=== PATIENT | female | born 1995 | race Caucasian/White ===

== ENCOUNTER 2017-08-25 08:00 | Inpatient (IN) ==
[2017-08-25] MEDS ORDERED: *HR* Nalbuphine 20 MG/ML AMPUL IVP PRN (17:54)
[2017-08-25] MEDS ORDERED: Ondansetron 4 MG/2 ML VIAL IVP PRN (17:54)
[2017-08-25] MEDS ORDERED: Naloxone 0.4 MG/ML INJ IVP PRN (17:54)
[2017-08-25] MEDS ORDERED: Famotidine 20 MG/2 ML VIAL IVP PRN (17:54)
[2017-08-25] MEDS ORDERED: Metoclopramide 10 MG/2 ML VIAL IVP PRN (17:54)
[2017-08-25] MEDS ORDERED: Lidocaine 1% 20 ML MDV INFILT PRN (17:54)
[2017-08-25] MEDS ORDERED: Ringers Solution, Lactated 1,000 ML IVC SCH (18:00)
[2017-08-25] MEDS ORDERED: miSOPROStol 25 MCG TABLET PO PRN (18:00)
[2017-08-25 18:30] LABS: Basophils % 0.2 %
[2017-08-25 18:32] LABS: Eosinophils # 0.1 K/mcL (0.0-0.6); Eosinophils % 1.5 %; Hematocrit 31.7 % (35.3-44.9); Hemoglobin 9.6 g/dL (11.5-15.4); Immature Platelets 20.7 % (1.1-6.1); Lymphocytes # 1.6 K/mcL (0.6-4.6); Lymphocytes % 16.2 %; Mean Corpuscular HGB Conc 30.3 g/dL (31.6-35.5); Mean Corpuscular Hemoglobin 22.4 pg (28.0-33.3); Mean Corpuscular Volume 74.1 fL (83.0-100.0); Monocytes # 0.9 K/mcL (0.0-1.3); Monocytes % 9.3 %; Neutrophils # 6.9 K/mcL (1.6-8.9); Nucleated Red Blood Cells 0.4 /100 WBC (0); Platelet Count 191 K/mcL (140-400); Red Blood Count 4.28 M/mcL (3.82-4.97); Red Cell Distribution Width 15.7 % (11.5-14.5); Segmented Neutrophils % 71.8 %
[2017-08-25 18:39] LABS: Amphetamine Screen,Urine Negative ng/mL (Cutoff=1000); Barbiturate Screen,Urine Negative ng/mL (Cutoff=200); Benzodiazepines Screen,Urine Negative ng/mL (Cutoff=200); Cannabinoid Screen,Urine Negative ng/mL (Cutoff = 50); Cocaine Screen,Urine Negative ng/mL (Cutoff= 300); Opiate Screen,Urine Negative ng/mL (Cutoff=300); Phencyclidine Screen,Urine Negative ng/mL (Cutoff=25)
--- NOTE | 2017-08-25 19:31 | OB/GYN History & Physical ---
Date of Encounter: 08/25/17 Time of Encounter: 19:30 Assessment and Plan (1) with 39 completed weeks gestation Current visit: Yes Status: Acute Admit for induction of labor VSS Cytotec for IOL Epidural when requested Anticipate (2) NST (non-stress test) reactive on surveillance Current visit: Yes Status: Acute Baseline 150 bpm moderate variability +accels/ - decels heart tracing reassuring Anticipate (3) Large for gestational age fetus affecting mother, antepartum, third trimester, single gestation Current visit: Yes Status: Acute History of Present Illness Chief complaint: labor evaluation HPI: Ms. Johnson is a 22 year old female at 39 weeks and 2 days who presents to labor and delivery for scheduled induction of labor. She receives appropriate antepartum care from Dr. Rodriguez, last outpatient visit on 08/19/17. She reports good movement with contractions every 5-10 minutes. Denies vaginal bleeding or leakage of fluid. Patient denies fever, chills, nausea, vomiting, headaches, vision disturbances, chest pain, shortness of breath, epigastric pain , dysuria. Patient's complicated by stated large for gestational age, FOB has daughter with heart defects, Varicella IgG negative. Blood Type: O+ GBS: negative Varicella IgG: negative Hepatitis B Antigen: NR HIV Antibody Ag: NR T Pallidum: negative Rubella IgG: positive last ultrasound 08/04/17 Indication: LGA . Findings: The fetus is in, VTX postition., The placenta is, . +FHB., The HILARY __3_/_26__/_18__, _36__W_2__D, UTS _38__W_4__D, The EFW is _3375_ _g or _7__lb__7_oz,-->90%-- The EDGARDO is __14__cm. head circ. >97%. Past Med Surg Social Fam HX - Past Medical History Medical history: no medical history, asthma Psychiatric history: no psych history - Past Surgical History Surgical History: other - Social History Smoking Status: Never smoker Smokeless Tobacco Status: No Alcohol use: none Drug use: none - Family History Father Living Status: Still Living Hx Family Cardiac Disorders: Yes (hypertension) Obstetrical History - Pregnancies : 1 Para: 0 Medications and Allergies Folic Acid 1 / PO DAILY 06/13/17 [History] Formula Tablet 1 tab PO DAILY 06/13/17 [History] 3 Allergy/AdvReac Type Severity Reaction Status Date / Time No Known Allergies Allergy Verified 06/13/17 12:33 Review of System OB All systems PM: reviewed and no additional remarkable complaints except as stated - Constitutional Constitutional ROS IM: as per HPI - Cardiovascular Cardiovascular: as per HPI - Respiratory Respiratory: as per HPI - Gastrointestinal Gastrointestinal: as per HPI - Genitourinary Genitourinary: as per HPI Exam - Constitutional Constitutional: well developed, well nourished, no acute distress, average body habitus - HEENT HEENT: Normocephaly, Mucus Membranes Moist - Neck Neck exam: full ROM - Lungs Respiratory exam: CTAB - Cardiovascular Cardiovascular exam: RRR, +S1, +S2 - Abdomen Abdomen: Present: bowel sounds normal, gravid, non tender - Extremities Extremities exam: full ROM, radial pulses palpable and symmetrical Deep Tendon Reflex Grade: 2+ Normal - Uterus Uterus exam: Present: normal size, normal contour Results Result Diagrams: 08/25/17 17:56 Abnormal lab results Hgb 9.6 g/dL (11.5-15.4) L 08/25/17 17:56 Hct 31.7 % (35.3-44.9) L 08/25/17 17:56 MCV 74.1 fL (83.0-100.0) L 08/25/17 17:56 MCH 22.4 pg (28.0-33.3) L 08/25/17 17:56 MCHC 30.3 g/dL (31.6-35.5) L 08/25/17 17:56 RDW 15.7 % (11.5-14.5) H 08/25/17 17:56 Nucleated RBCs/100 WBC 0.4 /100 WBC (0) H 08/25/17 17:56 Immature Plt Fraction 20.7 % (1.1-6.1) H 08/25/17 17:56 All other labs normal. - VTE Reasons for not Prescribing Prophylaxis: Treatment not Indicated - Low risk for VTE - Attending Attestation I examined this patient and my medical decision-making was reviewed with the Resident Physician. I agree with the documented findings, disposition and treatment plan as described. Susu Rodriguez DO
--- NOTE | 2017-08-25 20:19 | OB Labor Progress Note ---
Date of Encounter: 08/25/17 Time of Encounter: 20:17 Labor Progress Note - Subjective Subjective: Patient comfortable and denies complaints. She states she began adan at 2 am. She has had infrequent contractions off and on all day. - Cervix Cervix: 3/80/-3 vertex - Heart Tones Heart Tones: category 1 with baseline FHT's 140's - [place]: q 2.5-3 minute contractions s/p cytotec PO at 1830 - Interventions Interventions: Villanueva inserted above cervix and inflated with 60 ml sterile saline without difficulty. Patient tolerated the procedure well and questions answered. - Plan Plan: EFM with anticipation of vaginal delivery
--- NOTE | 2017-08-25 21:49 | OB Labor Progress Note ---
Date of Encounter: 08/25/17 Time of Encounter: 21:47 Labor Progress Note - Subjective Subjective: Pt reports mild to moderate discomfort with contractions. - Cervix Cervix: 6-7/90/0 - Heart Tones Heart Tones: Category I - [place]: irregular - Interventions Interventions: AROM for moderate amount clear fluid. IUPC and FSE placed. - Plan Plan: Continue to monitor. Epidural when requested. Anticipate .
[2017-08-25] MEDS ORDERED: Bupivacaine-MPF 0.25% 10 ML VIAL EP ONE (22:03)
[2017-08-25] MEDS ORDERED: *HR* FentaNYL (PF) 100 MCG/2 ML VIAL EP ONE (22:03)
[2017-08-25] MEDS ORDERED: Epidural Premix (fent/bupiv) 110 ML EP SCH (22:15)
--- NOTE | 2017-08-25 22:21 | Anesthesia Evaluation PreOp ---
Date of Encounter: 08/25/17 Time of Encounter: 22:10 - Past History Planned Operation: labor epidural Cardiac History: Denies any Significant Hx Pulmonary History: Asthma (mild, does not use inhaler, well-controlled.) WAITER/WAITRESS FORMAL History: Other (history of petitmal seizures, on no meds now, last seizure at beginning of .) Other Medical History: Denies Any Significant HX Anesthesia History: No Prior Anesthetic Complications, Past Anesthesia (left elbow pinning. No FHAP.) Alcohol Use: none Drug use: none Medications and Allergies Folic Acid 1 / PO DAILY 06/13/17 [History] Formula Tablet 1 tab PO DAILY 06/13/17 [History] 3 Allergy/AdvReac Type Severity Reaction Status Date / Time No Known Allergies Allergy Verified 06/13/17 12:33 - Meds/Allergy Pre-op Review Medications Reviewed: Yes Allergies Reviewed: Yes Beta Blockers on Current Med List: No Anesthesia Results - Labs 08/25/17 17:56 Anesthesia Exam VSS and FHTs WNL and stable. Height: 5'9" Weight: 101 kg NPO (# of Hours): 6 Pain Scale: 8 Pain Scale Used: Numeric (1 - 10) - HEENT Pupil (Motor): Pupils equal Mallampati: II Teeth: Normal Oral Opening: Greater than 3 - WAITER/WAITRESS FORMAL LOC: Oriented WAITER/WAITRESS FORMAL Motor: Normal RUE, Normal LUE, Normal RLE, Normal LLE, Normal Face WAITER/WAITRESS FORMAL Sensory: Normal: RUE, LUE, RLE, LLE, Face - Cardiac Rhythm: Regular - Pulmonary Breath Sounds: bilateral Clear Respiratory Effort: Symmetrical Anesthesia Assess/Plan ASA Score: 2 Modified Clark Scale for Level of Consciousness: Cooperative, oriented, and tranquil Anesthetic Plan: Regional Monitoring Plan: Standard Monitors
[2017-08-25] MEDS ORDERED: Epidural Premix (fent/bupiv) 110 ML EP ONE (22:25)
--- NOTE | 2017-08-25 23:46 | Anesthesia Procedures ---
Date of Encounter: 08/25/17 Time of Encounter: 22:30 Procedures: Anesthesia - Epidural/Spinal Patient ID/Chart reviewed: Yes Patient examined: Yes OB Eval: Gestational age: 39 OB Eval: : 1 OB Eval: Hx Para: 0 OB Eval: Dilated at (cm): 6 OB Eval: Contractions: Non-stressed pattern Consent Obtained: Yes Supplemental Oxygen: None/Room Air Site Prep: Aseptic Technique, Sterile prep and drape, Povidone-Iodine 1% Patient position: upright Local Anesthetic: Lidocaine 1% Amount of Local Anesthetic used: 3 Touhy Needle Gauge: 18 Touhy Needle Depth (cm): 6 Catheter Depth at Skin (cm): 15 Test Dose (1.5% Lido + Epi): Volume given (mls): 3 Test Dose Result: Negative Loading Dose: 0.25% Marcaine (mls): 8 Loading Dose: Fentanyl (mcg): 100 Loading Dose Administered: Thru Catheter Infusion Med: 0.125% Bupivacaine w/ 2 mcg/ml Fentanyl Infusion Rate (mls/hr): [address]: Tegaderm, Tape Interspace Used: L3-L4 Loss of Resistance (DARCI): Yes Blood: No CSF: No Paresthesia: No Vitals + FHT's: 3 Vital Signs Time 2230 2244 2250 2255 2300 BP 124/82 118/55 117/58 108/55 113/56 Pulse 92 101 100 90 93 FHTs 130 130 130 130 130
[2017-08-26] MEDS ORDERED: Oxytocin 20 units/ LR 1000 mL 20 UNIT/1,000 ML BAG IVC SCH ×2 (01:00→07:49)
--- NOTE | 2017-08-26 04:25 | OB/GYN Procedure Note ---
Delivery - Delivery Date: 08/26/17 Provider: Susu Rodriguez Intrapartum events: none Delivery induction: AROM, oxytocin, tinajero, misoprostol Delivery monitor: external FHT, external uterine, internal FHT, internal uterine Anesthesia: local, epidural Estimated Blood Loss: 300 - (s) A Infant Delivery Date: 08/26/17 Infant Delivery Time: 03:56 Presentation: vertex Position: DAISY Route of delivery: Gender: Male Viability: Viable Pounds: 9 Ounces: 8 Weight Gram: 4.29 kg at 1 minute: 8 at 5 mins: 9 Shoulder Dystocia: not encountered Specimens collected: cord blood Placenta: spontaneous Cord: 3 umbilical vessels - Repair Episiotomy: none Laceration Description: Perineal - 1st Degree, Labial (right) - Complications Delivery complications: none Delivery comments: Called to room with patient complete and +1 station. Under maternal effort she delivered a viable male weighing 9 lbs. 8 oz. and Apgars 8 and 9 at one and 5 minutes respectively were first degree perineal laceration. Following the delivery of the head there was no nuchal cord encountered. The infant was bulb suctioned. The shoulders and remainder of the body delivered with maternal effort. was placed on mom's abdomen. Cord was allowed to cease pulsation and then was double clamped and cut. Cord blood was collected. Placenta delivered spontaneously, complete, and intact with a three-vessel cord. She had a right labial laceration that was repaired using 3-0 Vicryl and Monocryl in an interrupted fashion with some local anesthetic applied. First- degree perineal laceration was repaired using 3-0 Vicryl in standard fashion under local anesthesia. Hemostasis assured. Mother and infant recovering in the LDR in stable condition.. - Disposition Mom disposition: stable in LDR [place] disposition: stable in LDR
[2017-08-26] MEDS ORDERED: Oxytocin 20 units/ LR 1000 mL 20 UNIT/1,000 ML BAG IVC ONE (07:49)
[2017-08-26] MEDS: Prenatal Vit/FA 1 EACH TABLET PO SCH (08:08)
[2017-08-26] MEDS: Acetaminophen 325 MG TABLET PO PRN ×2 (08:10→17:03)
[2017-08-26] MEDS: Ibuprofen 600 MG TABLET PO PRN (19:23)
[2017-08-27 08:04] VITALS: BP 105/68
--- NOTE | 2017-08-27 10:07 | Discharge Summary ---
Date of Encounter: 08/27/17 Time of Encounter: 10:04 - Discharge Diagnosis (1) Vaginal delivery Priority: Primary Status: Acute Comments: Pt reports pain well controlled with PO pain meds Tolerating regular diet Voiding independently Passing flatus, but has not had BM yet OK Lochia light Discharge home today (2) Breast feeding status of mother Priority: Secondary Status: Acute Comments: consult prn (3) anemia Priority: Secondary Status: Acute Comments: Continue iron supplement BID - Discharge Medications Prescriptions: Ibuprofen [Motrin] 600 mg PO Q6HR PRN #30 tablet PRN Reason: Cramping Docusate [Colace] 100 mg PO BID #60 capsule Ferrous Sulfate 325 mg PO BID #60 tablet Home Medications: Formula Tablet 1 tab PO DAILY 06/13/17 [History] Acetaminophen [Tylenol] 650 mg PO Q6HR PRN tablet 08/27/17 [Rx] Docusate [Colace] 100 mg PO BID #60 capsule 08/27/17 [Rx] Ferrous Sulfate 325 mg PO BID #60 tablet 08/27/17 [Rx] Ibuprofen [Motrin] 600 mg PO Q6HR PRN #30 tablet 08/27/17 [Rx] Allergies/Adverse Reactions: 3 Allergy/AdvReac Type Severity Reaction Status Date / Time No Known Allergies Allergy Verified 06/13/17 12:33 Data Procedures and tests throughout hospitalization: Laboratory Tests 08/25/17 08/25/17 17:56 18:11 WBC 9.6 RBC 4.28 Hgb 9.6 L Hct 31.7 L MCV 74.1 L MCH 22.4 L MCHC 30.3 L RDW 15.7 H Plt Count 191 MPV TNP Immature Gran % 1.0 Seg Neutrophils % 71.8 Lymphocytes % 16.2 Monocytes % 9.3 Eosinophils % 1.5 Basophils % 0.2 Neutrophils # 6.9 Lymphocytes # 1.6 Monocytes # 0.9 Eosinophils # 0.1 Basophils # 0.0 Nucleated RBCs/100 WBC 0.4 H Immature Plt Fraction 20.7 H Urine Opiates Screen Negative Ur Barbiturates Screen Negative Ur Phencyclidine Scrn Negative Ur Amphetamines Screen Negative U Benzodiazepines Scrn Negative Urine Cocaine Screen Negative U Marijuana (THC) Screen Negative Date of admission: 08/25/17 17:07 Primary care physician: Fawn Campos CNP Consults: 08/26/17 07:49 Consult to Ex Chef [CONS] Routine Comment: Vaginal delivery, consult needed Discharging clinician: Sara Selby Anticipated date of discharge: 08/27/17 - Patient Status Disposition: Home, Self-Care Condition: Good Functional capacity at discharge: independent ambulation Overall status at discharge: patient is progressing back to baseline - Discharge Instructions Follow Up With: Fawn Campos CNP [Primary Care Provider] - Susu Rodriguez DO [Partnered Physician] - - Diet and Activity Activity: increase activity as tolerated Diet: regular diet Hospital Course Reason for admission: induction of labor, IUP at term Delivery: Episiotomy: none Laceration: 1st degree, other Other procedures: none complications: none Discharge diagnosis: IUP at term delivered baby: male Time Attestation: Total time spent providing and/or coordinating discharge services: Time Spent: Less than 30 minutes Exam - Constitutional Vitals: Temp Pulse Resp BP Pulse Ox 98.3 F 84 16 105/68 98 08/27/17 08:01 08/27/17 08:01 08/27/17 08:01 08/27/17 08:01 08/27/17 08:01 General appearance IM: A&O X 3, pleasant, no acute distress - Respiratory Respiratory exam: Present: CTAB - Cardiovascular Cardiovascular exam IM: Present: RRR, +S1, +S2 - GI/Abdominal GI/Abdominal exam IM: normal bowel sounds, no peritoneal signs - Rectal Rectal exam: deferred - Uterine Tone: Firm Uterus Position: At Umbilicus, Midline - Extremities Exam Extremities exam IM: Present: radial pulses palpable and symmetrical - Neurological Exam Neurological exam: alert, oriented X3, reflexes normal - Psychiatric Additional comments: Pt feeling mentally well today. S/sx of PPD discussed and pt verbalized understanding of when to call.
[2017-08-27] MEDS: Prenatal Vit/FA 1 EACH TABLET PO SCH (10:45)
[2017-08-27] MEDS: Ibuprofen 600 MG TABLET PO PRN (10:45)
== END 2017-08-27 17:36 | disposition home or self-care (01) | DRG 775 ==
LOC: 1NENULAB 17:07 → 1NENUOBS 08-26 06:46
PROVIDERS: ADMIT Obstetrics & Gynecology; ATTEND Obstetrics & Gynecology